=== PATIENT | male | born 1975 | race Caucasian/White ===

== ENCOUNTER 2017-11-07 09:27 | Emergency (ER) | payer SELFPAY ==
[2017-11-07 09:46] VITALS: BMI 32.8
[2017-11-07] MEDS ORDERED: SODIUM CHLORIDE 0.9% 500 ML INFUS.BAG IV ONE (10:40)
--- NOTE | 2017-11-07 10:47 | PDOC ---
History of Present Illness - General Chief Complaint: Pain Stated Complaint: DIARRHEA History Source: Patient - History of Present Illness Initial Comments: The patient is a 41M with no reported PMH presents with 3 days of NB diarrhea. He reports that Saturday he and a colleague began to experience similar diarrheal symptoms associated with nausea (no emesis) while at a gathering. The patient reports that on Saturday he was experiencing associated suprapubic abdominal cramping which resolved by Saturday. Since that time, however, he has had continued diarrhea, up to 10 episodes daily. The reports that he has had decreased PO intake; however, the patient states that he feels he was been eating normally. He does endorse some epigastric 'fullness' when he tried to drink 'a lot' of water this morning. The patient has been drinking gatorade to remain hydrated. 11/07/17 10:41 Past History - Past Medical History Allergies/Adverse Reactions: Allergies Allergy/AdvReac Type Severity Reaction Status Date / Time No Known Allergies Allergy Verified 11/07/17 09:42 Home Medications: Ambulatory Orders Famotidine [Pepcid -] 20 mg PO DAILY 30 Days #30 tablet 11/07/17 Mag Hydrox/Al Hydrox/Simeth [Mylanta Suspension -] 30 ml PO Q6H #1 bottle COPD: No - Suicide/Smoking/Psychosocial Hx Smoking History: Never smoked Have you smoked in the past 12 months: No Information on smoking cessation initiated: No Hx Alcohol Use: No Drug/Substance Use Hx: No Substance Use Type: None Review of Systems - Review of Systems Able to Perform ROS?: Yes Comments:: GENERAL/CONSTITUTIONAL: No fever or chills. No weakness HEAD, EYES, EARS, NOSE AND THROAT: No change in vision. No ear pain or discharge. No sore throat CARDIOVASCULAR: No chest pain or shortness of breath RESPIRATORY: No cough, wheezing, or hemoptysis GASTROINTESTINAL: per HPI GENITOURINARY: No dysuria, frequency, or change in urination MUSCULOSKELETAL: No joint or muscle swelling or pain. No neck or back pain SKIN: No rash NEUROLOGIC: No headache, vertigo, loss of consciousness, or change in strength/ sensation ENDOCRINE: No increased thirst. No abnormal weight change HEMATOLOGIC/LYMPHATIC: No anemia, easy bleeding, or history of blood clots ALLERGIC/IMMUNOLOGIC: No hives or skin allergy 11/07/17 10:47 Is the patient limited Montenegrin proficient: No *Physical Exam - Vital Signs Last Vital Signs Temp Pulse Resp BP Pulse Ox 98.3 F 75 18 120/87 100 11/07/17 09:44 11/07/17 09:44 11/07/17 09:44 11/07/17 09:44 11/07/17 10:22 - Physical Exam Comments: GENERAL: Awake, alert, and fully oriented, in no acute distress HEAD: No signs of trauma, normocephalic, atraumatic EYES: PERRLA, EOMI, sclera anicteric, conjunctiva clear ENT: Auricles normal inspection, hearing grossly normal, nares patent, oropharynx clear without exudates. Moist mucosa NECK: Normal ROM, supple LUNGS: No distress, speaks full sentences, clear to auscultation bilaterally HEART: Regular rate and rhythm, normal S1 and S2, no murmurs appreciated, peripheral pulses normal and equal bilaterally ABDOMEN: Soft, mild right TTP without guarding or rebound, normoactive bowel sounds. No guarding, no rebound EXTREMITIES : Normal inspection, Normal range of motion, no edema. No clubbing or cyanosis NEUROLOGICAL: Cranial nerves II through XII grossly intact. Normal speech, normal gait, no focal sensorimotor deficits SKIN: Warm, Dry, normal turgor, no rashes or lesions noted 11/07/17 10:48 ED Treatment Course - LABORATORY CBC & Chemistry Diagram: 11/07/17 10:45 11/07/17 10:45 Medical Decision Making - Medical Decision Making The patient is a 41M who presents with 3 days of NB diarrhea. ED Course CMP, Lipase, CBC NS 1L IV once 11/07/17 10:54 Patient reports feeling improved. Patient currently receiving IV hydration Will give Pepcid and Maalox 11/07/17 11:59 11/07/17 12:00 Patient reports improved symptoms Rx Pepcid and Maalox 11/07/17 12:43 Dispo: Home with PCPf/u *DC/Admit/Observation/Transfer Diagnosis at time of Disposition: Gastritis Qualifiers: Gastritis type: other gastritis Chronicity: acute Gastritis bleeding: without bleeding Qualified Code(s): K29.00 - Acute gastritis without bleeding - Discharge Dispostion Disposition: HOME Condition at time of disposition: Stable Decision to Admit order: No - Prescriptions Prescriptions: Famotidine [Pepcid -] 20 mg PO DAILY 30 Days #30 tablet Mag Hydrox/Al Hydrox/Simeth [Mylanta Suspension -] 30 ml PO Q6H #1 bottle - Referrals - Patient Instructions Printed Discharge Instructions: Diarrhea, [place] Diet Additional Instructions: You were seen today in the Emergency Department for diarrhea. You were evaluated and found to have labs within normal limits. Review the handouts provided at discharge. Follow up with your primary care provider within the next 1-3 days. Be sure to maintain hydration with water or sports drink by taking small volumes at a time to avoid nausea or increasing irritation. Return to the Emergency Department if you develop fevers, worsening symptoms, vomiting , or new concerning symptoms. - Post Discharge Activity Forms/Work/School Notes: Back to Work
[2017-11-07 10:55] LABS: HEMATOCRIT 42.3 % (35.4-49); HEMOGLOBIN 14.5 GM/dL (11.7-16.9); MCH 27.3 pg (25.7-33.7); MCHC 34.4 g/dl (32.0-35.9); MEAN CELL VOLUME 79.4 fl (80-96); PLATELET COUNT 225 K/MM3 (134-434); RBC 5.33 M/mm3 (4.00-5.60); RDW 13.4 % (11.9-15.9); WHITE BLOOD COUNT 3.6 K/mm3 (4.0-10.0)
[2017-11-07 11:21] LABS: CALCIUM 8.9 mg/dL (8.5-10.1); CHLORIDE 106 mmol/L (98-107); POTASSIUM 4.1 mmol/L (3.5-5.1); SODIUM 139 mmol/L (136-145)
[2017-11-07 11:25] LABS: URINE APPEARANCE CLOUDY; URINE BILIRUBIN NEGATIVE (<2.0 mg/dL); URINE COLOR YELLOW; URINE GLUCOSE (UA) NEGATIVE (NEGATIVE); URINE KETONE NEGATIVE (NEGATIVE); URINE LEUK ESTERASE NEGATIVE (NEGATIVE); URINE NITRITE NEGATIVE (NEGATIVE); URINE UROBILINOGEN NEGATIVE mg/dL (0.2-1.0)
[2017-11-07 11:26] LABS: ALBUMIN 3.7 g/dl (3.4-5.0); ALK PHOS 73 U/L (45-117); ANION GAP 10 MMOL/L (8-16); BILIRUBIN,TOTAL 0.2 mg/dL (0.2-1.0); BLOOD UREA NITROGEN 13 mg/dL (7-18); CO2 23 mmol/L (21-32); GLUCOSE,RANDOM 98 mg/dL (74-106); LIPASE 154 U/L (73-393); SGOT/AST 32 U/L (15-37); SGPT/ALT 49 U/L (12-78)
[2017-11-07 11:59] LABS: URINE PROTEIN 1+ (NEGATIVE)
[2017-11-07 12:00] LABS: EPI CELLS RARE /HPF (FEW); URINE BACTERIA RARE /hpf (NONE SEEN); URINE HYALINE CAST 2 /lpf; URINE MUCUS MANY
[2017-11-07] MEDS ORDERED: FAMOTIDINE 20 MG/50 ML IVPB 20 MG/50 ML MG IVPB ONE ×2 (12:00→12:09)
[2017-11-07] MEDS ORDERED: MAG HYDROX/AL HYDROX/SIMETH 30 ML UNIT-DOSE CUP PO ONE (12:00)
[2017-11-07] MEDS ORDERED: MAG HYDROX/AL HYDROX/SIMETH 30 ML UNIT-DOSE CUP ONE (12:09)
--- NOTE | 2017-11-07 12:54 | PDOC ---
Attending Attestation - Resident Resident Name: Eric Alford - ED Attending Attestation I have performed the following: I have examined & evaluated the patient, The case was reviewed & discussed with the resident, I agree w/resident's findings & plan - HPI HPI: 11/07/17 12:45 41 year old male with no known pmh who presents for evaluation of diarrhea since Saturday. Pt reports multiple episodes of non-bloody diarrhea since saturday, 10 episodes a day. Pt reports associated symptoms of nausea and vomiting, since resolved. Endorses decreased PO intake. Patient notes his friend had a 1 day hx of similar symptoms. - Physicial Exam PE: 11/07/17 12:45 NAD, well appearing, MMM, nl conjunctiva, anicteric; neck supple. lungs clear, RRR, abdomen soft nontender. MEZA x4, no focal neuro deficits. No peripheral edema. normal color for ethnicity, WW. - Medical Decision Making 11/07/17 12:57 Ramos 41M with no medical history presenting with diarrhea x 4 days. No fevers or vomiting, since resolved nausea and vomiting. +sick contact with similar symptoms earlier in the week after trip to [place]. No travel out of country. Tolerating PO without difficulty. DDx. hepatitis, gastritis, GERD, pancreatitis, electrolyte or metabolic derangements, gastroenteritis, viral syndrome. doubt acute abdomen or severe infection as no abdominal or peritoneal sx. Vital signs reviewed, wnl. Medical Plan: CBC, CMP, lipase. Prior notes reviewed, including admissions, discharges and consultations. laboratory results and imaging reviewed, basic labs, lipase, and lytes wnl, notable for_ mild leukopenia, but does not appear toxic. could likely be explained by viral syndrome/infection, no upper respiratory sx. Given IVF, pepcid and GI cocktail. Feels improved, abdomen exam nontender and benign. remains well appearing. Pt informed of my clinical impression, treatment recommendations and disposition plan. All questions answered to patient's satisfaction and expressed understanding and comfort with this. Reasons for returning to the ED sooner discussed with the patient otherwise, follow up with primary care physician. At the time of discharge, the patient is alert, clinically improved, tolerating po and verbalizes understanding of instructions. JUICE diet discussed , supportive care and hydration, bowel rest, work note to be provided. OTC pepcid as well. no abx indicated as unlikely to effect treatment/symptom course.
[2017-11-07 13:23] VITALS: BP 121/78; PULSE 67; TEMP 98.6
== END 2017-11-07 13:24 | disposition home or self-care (01) ==
LOC: JER 09:27
PROC: 3E033GC Introduction of Other Therapeutic Substance into Peripheral Vein, Percutaneous Approach (ICD-10-PCS; principal; 2017-11-07)
DX: K29.00 Acute gastritis without bleeding (principal)
CPT/HCPCS: 36415; 80053; 81003; 81015; 83690; 85027; 99283-25